=== PATIENT | female | born 2005 | race Caucasian/White ===

== ENCOUNTER 2025-01-27 10:01 | Outpatient (AMB) | payer OTHER, SELFPAY ==
--- NOTE | 2025-01-27 10:02 | MHC.PC.OV ---
Vital Signs 01/27/25 10:11 Height 5 ft 3.5 in Weight 246 lb 2 oz BMI 42.9 BP 124/74 Blood Pressure Location Lt brachial Position Sitting Respiration 12 Pulse 77 Pulse Source Pulse Oximeter Temp 97.6 F Temp Source Oral Pulse Oximetry (%) 98 Oxygen Delivery Method Room Air Intake Visit Reasons: CPE Intake Note: New patient to establish care and cpe Heading Pinner Required: No Allergies No Known Allergies (No Known Allergies*) Allergy (Unverified 01/27/25 10:03) Medication List - Last Reviewed 01/27/25 by Tomasz Clement MA ibuprofen 600 mg PO QID PNV,calcium 69-exdp-ggosn acid 27 mg iron- 1 mg (M- Plus) 1 tab PO DAILY Tobacco use date assessed: 01/27/25 Dental Screening Dental Screen Date: 01/27/25 Did you have a dental visit in the last 12 months?: Yes Did you have a dental problem in the last 6 months where you did not have access to dental care?: No Was dental information given to patient?: Patient has dentist HPI HPI Comments History of Present Illness Details 19 y/o F with MDD, LUCIE, obesity Social: 1 dtr 4 months, lives w/ mom boyfriend dtr and brother. Completed [place] school. Surgery: C section Fhx: Mom mental health, Dad healthy, Sister age 5 brain cancer; 1 brother alive and well. Dtr alive and well. Health Maintenance Tdap 2024 Flu declined 01/27/25 Pap [facility] [employer] [facility] No records, [facility] History of Present Illness The patient is a 19-year-old female presenting to establish care and for a complete physical exam. Major Depressive Disorder and Generalized Anxiety Disorder: - The patient has a history of major depressive disorder and generalized anxiety disorder, with positive PHQ and LUCIE screenings today. - She reports that her anxiety symptoms have worsened since her . - She denies any thoughts of harming herself or her baby. - She has never been on medication for her mood and has not been active with a counselor but is agreeable to starting both. - Her family history is positive for mental health issues in her mother. State: - The patient is 4 months from an emergency section. - The was indicated for heart rate decelerations during an induced labor. - She denies any history of hypertension or diabetes during her . - She is currently via pumping and taking vitamins and ibuprofen as needed. - Her menstrual cycles have returned and occur every 40 days. - She experienced some constipation after delivery. History of Herpes: - The patient was prescribed valacyclovir for a cold sore. - She denies any recurrence. Past Medical History - Major depressive disorder - Generalized anxiety disorder - History of herpes - GBS positive during - state Past Surgical History - Emergency section 4 months prior Family History - Mother has a history of mental health conditions. - Father has no significant medical history. - One brother is alive and well. - Sister at age 5 from brain cancer. Social History - The patient lives with her mother, boyfriend, 4-month-old daughter, and brother. - She reports feeling safe in her home environment. 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 - She is currently not working to care for her infant. - She desires to lose weight but reports increased hunger due to . Health Maintenance - A complete physical exam was performed. - Screening labs for thyroid function, diabetes, and cholesterol were ordered, and blood will be drawn today. - The patient declined an influenza vaccine. - Schedule a follow-up appointment in six weeks to review lab results and assess medication response. - The patient was instructed on how to sign up for and use the patient portal for communication and to view results. Review of Systems - Psychiatric: Reports increased anxiety and symptoms of depression since , with decreased frequency of finding luis in daily activities. - Neurological: Denies feeling weak or faint. - Constitutional: Expresses concern about weight and desire for weight loss. - GI: Denies current constipation. - : Reports menstrual cycles have returned with a 40-day interval and are not heavy. - Endocrine: Denies symptoms of hypertension or diabetes during . - Extremities: Denies swelling. - Musculoskeletal: Denies pain with movement. Physical Exam General: Well developed, well nourished, in no acute distress. Appears stated age. Head: Normocephalic, atraumatic. Eyes: Pupils are equal, round and reactive to light and accommodation. Conjunctivae are clear. Scleras nonicteric bilat. Vision grossly normal. Ears: TMs clear AU, EACS WNL Nose: Patent, without discharge. Neck: No carotid bruit bilat. Supple, no adenopathy or thyromegaly. Breast: Edu on SBE Lungs: Clear to auscultation bilaterally. No rales, rhonchi or wheeze noted. Good air flow in all hughes. Heart: Regular rate and rhythm. No murmurs, click, rubs or gallops are noted. Abdomen: Bowel sounds present in all quadrants. The abdomen is soft, nontender, with no masses or organomegaly noted. No hernias are noted. : Deferred. Reviewed recommendations for routine [employer] Pulses: Peripheral pulses are equal and palpable bilaterally. Extremities: No clubbing, cyanosis nor edema is noted. Neurologic: Gait and station normal. Cranial Nerves 2-12 intact. Motor strength grossly symmetrical and intact. No sensory loss. Balance normal. Skin: No rashes, ulcers, or lesions noted. Turgor is good. Skin color is good. Hair and nails are without abnormalities. Psych: Positive screenings for major depressive disorder and generalized anxiety disorder. Normal eye contact, affect and mood appropriate, and normal interactions. Patient is alert and appropriate to context. Results - PHQ and LUCIE screenings were positive. Labs pending Medical Decision Making The patient is a 19-year-old female, 4 months , presenting for a new patient visit, complete physical exam, and management of her mental health. Her primary concerns are worsening anxiety and symptoms of depression since her , which were confirmed by positive PHQ and LUCIE screenings. Given the patient's agreement, the plan is to initiate both pharmacotherapy and psychotherapy. Sertraline was selected due to its safety profile in . A low starting dose with a gradual titration is planned to improve tolerability, and she will be referred for counseling. Routine health maintenance screenings for thyroid disorders, diabetes, and hyperlipidemia were also indicated and ordered, as these can contribute to her symptoms and are pertinent in the period. Her concerns about weight loss were addressed with reassurance and a recommendation to delay caloric restriction to support recovery and . Follow-up is scheduled for six weeks to reassess her mood symptoms, review lab results, and evaluate her response to treatment. Plan 1. Major Depressive Disorder And Generalized Anxiety Disorder - A referral for counseling will be placed to address the patient's positive screenings for depression and anxiety. Brief intervention w/ CHW done. - Initiated sertraline 25 mg daily. - The patient was instructed to take half a tablet (12.5 mg) once a day for two weeks before increasing to the full 25 mg dose daily. - The patient was educated that sertraline is safe for and may cause initial side effects like a dull headache. - The prescription was sent to [facility] in [place]. 2. Weight Management - Addressed patient's desire to lose weight. - Advised giving her body about a year to recover from childbirth and for weight to normalize before implementing calorie restrictions, especially while . - Screening labs will help rule out any underlying metabolic causes contributing to difficulty with weight loss. Patient Instructions - Start taking sertraline for anxiety and depression. - For the first two weeks, take half of a 25 mg tablet once a day. - After two weeks, increase to one full 25 mg tablet once a day. - This medication is safe to take while you are . - You will be connected with our in-commercial loan officer to arrange for counseling. - Please have blood work done today at the lab here in the office. - Please stop at the first front ventilator to schedule a follow-up appointment for six weeks from now. - You will receive an email with a link to sign up for our patient portal. - Please use the patient portal danica to see your lab results and to send me direct messages. - It is best not to restrict your calories to lose weight for about a year while your body recovers and you are . Consent Patient was informed and verbally consented to the use of an ambient scribe for clinic note documentation during this visit. An additional 30 minutes was spent addressing the problem(s) noted at todays visit. This includes time spent before the visit reviewing the chart, time spent during the visit, and time spent after the visit on documentation reviewing laboratory results, diagnostic imaging, medications, performing a medically necessary evaluation, counseling on diagnoses, care coordination, ordering appropriate tests, ordering appropriate medications, review of tests performed by other providers, reporting test results with the patient, communication with other healthcare providers. [facility] Medical History (Updated 01/27/25 @ 10:37 by [facility]) Depression Eczema Surgical History (Updated 01/27/25 @ 10:10 by Tomasz Clement MA) Previous section Family History (Updated 01/27/25 @ 10:11 by Tomasz Clement MA) Sister Brain cancer Maternal Grandmother Stroke Mental health disorder Mother Mental health disorder Social History (Updated 01/27/25 @ 10:03 by Tomasz Clement MA) Household Members: Significant Other, Children and Other Household Members Other:: mother Both parents involved: No Caregiver staying overnight: No Housing: House 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 1. Little interest or pleasure in doing things: several days 2. Feeling down, depressed, or hopeless: several days 3. Trouble falling or staying asleep, or sleeping too much: several days 4. Feeling tired or having little energy: several days 5. Poor appetite or overeating: nearly every day 6. Feeling bad about yourself - or that you are a failure or have let yourself or your family down: several days 7. Trouble concentrating on things, such as reading the newspaper or watching television: more than half the days 8. Moving or speaking so slowly that other people could have noticed. Or the opposite - being so fidgety or restless that you have been moving around a lot more than usual: not at all 9. Thoughts that you would be better off or of hurting yourself in some way: not at all Total score: 10 Depression Screening Interpretation: Positive Depression Screening Follow-up: Community Mental Health Worker F/U Depression Screening Done: Yes 00641 - PHQ-9 Billing: Yes Source: Developed by Drs. Alexis Luna, Rita Gibson, Arnold Rahman and colleagues, with an educational freya from [employer]. Thrive Questionnaire Date Thrive assessed: 01/27/25 I am a: Patient What is your living situation today?: I have a steady place to live Within the past 12 months, did the food you bought not last and you didn't have the money to get more?: Never true Within the past 12 months, did you worry whether your food would run out before you got money to buy more?: Never true Do you have trouble paying for medicines?: No Do you have trouble getting transportation to medical appointments?: No Do you have trouble paying your heating and electricity bill?: No Do you have trouble taking care of your child, family member or friend?: No Do you have trouble with day-to-day activities such as bathing, preparing meals, shopping, managing finances, etc.?: No Are you currently unemployed and looking for a job?: No Are you interested in more education?: Yes Please select the resources that you would like help with: None Currently or been in a relationship where the following occur: No concerns reported THRIVE Score: 0 AUDIT C Alcohol Use Questionnaire (AUDIT-C) 1. How often do you have a drink containing alcohol?: Never 3. How often do you have six or more drinks on one occasion?: Never Total Score: 0 Score Reviewed/Action Taken: Yes LUCIE-7 AMB Questionnaire LUCIE-7 Date LUCIE - 7 assessed: 01/27/25 Feeling nervous, anxious, or on edge: 1 = Several days Not being able to stop or control worryin = More than half the days Worrying too much about different things: 2 = More than half the days Trouble relaxin = Not at all Being so restless that it is hard to sit still: 0 = Not at all Becoming easily annoyed or irritable: 1 = Several days Feeling afraid as if something awful might happen: 1 = Several days Total LUCIE-7 score (0-4 normal; 5-9 mild; 10-14 moderate; 15-21 severe): 7 Source: Developed by Drs. Alexis Luna, Rita Gibson, Arnold Rahman and colleagues, with an educational freya from [employer]. LUCIE-7 Assessment Billing LUCIE-7 Assessment Tool: LUCIE-7 Assessment 67831 Physical exam (Primary Care) Tobacco/Smoking Status: Tobacco use Status Tobacco use date assessed 01/27/25 01/27/25 10:06 Patient Tobacco Use Status Never used Tobacco 01/27/25 10:06 e-Cigarette/Vaping Use Never Used 01/27/25 10:06 PHQ-9: PHQ-9 Score PHQ-9: Total score 10 01/27/25 10:06 Depression Screening Interpretation: Positive Depression Screening Follow-up: Community Mental Health Worker F/U Thrive Assessment: Date of Thrive Assessment Date Thrive assessed 01/27/25 01/27/25 10:06 Currently or been in a relationship where the following occur: No concerns reported Coding Level of Care Code New Pt Level 3 (41178) New Pt Prev Care 18-39yr(76829 Diagnoses Encounter to establish care Z76.89 Mild episode of recurrent major depressive disorder F33.0 Major depression episode severity: mild LUCIE (generalized anxiety disorder) F41.1 Herpes B00.9 Obesity, morbid, BMI 40.0-49.9 E66.01 Adult general medical exam Z00.00 Influenza vaccination declined Z28.21 Laboratory exam ordered as part of routine general medical examination Z00.00 Additional Codes LUCIE-7 Assessment Billing - LUCIE-7 Assessment Tool: LUCIE-7 Assessment 92898 ([id number]) PHQ-9 - 68278 - PHQ-9 Billing: Yes ([id number]) Assessment & Plan Assessment & Plan (1) Encounter to establish care: Code(s): Z76.89 - Persons encountering health services in other specified circumstances (2) MDD (major depressive disorder), recurrent episode: Code(s): F33.9 - Major depressive disorder, recurrent, unspecified Category: Medical Qualifiers: Major depression episode severity: mild Qualified Code(s): F33.0 - Major depressive disorder, recurrent, mild (3) LUCIE (generalized anxiety disorder): Code(s): F41.1 - Generalized anxiety disorder Category: Medical (4) Herpes: Code(s): B00.9 - Herpesviral infection, unspecified Category: Medical (5) Obesity, morbid, BMI 40.0-49.9: Code(s): E66.01 - Morbid (severe) obesity due to excess calories Category: Medical (6) Adult general medical exam: Onset Date: ~01/27/25 Code(s): Z00.00 - Encounter for general adult medical examination without abnormal findings Category: Medical (7) Influenza vaccination declined: Onset Date: ~01/27/25 Code(s): Z28.21 - Immunization not carried out because of patient refusal Category: Medical (8) Laboratory exam ordered as part of routine general medical examination: Code(s): Z00.00 - Encounter for general adult medical examination without abnormal findings Category: Medical Plan . Orders: Orders Complete Blood Count no Diff Today Z00.00 - Encounter for general adult medical examination without abnormal findings Ferritin Today Z00.00 - Encounter for general adult medical examination without abnormal findings Microalbumin, Random (w Creat) Today Z00.00 - Encounter for general adult medical examination without abnormal findings TSH reflex Free T4 Today Z00.00 - Encounter for general adult medical examination without abnormal findings Vitamin B12 and Folate Today Z00.00 - Encounter for general adult medical examination without abnormal findings Hemoglobin A1c Today Z00.00 - Encounter for general adult medical examination without abnormal findings Comprehensive Met. Panel Today Z00.00 - Encounter for general adult medical examination without abnormal findings Lipid Panel Today Z00.00 - Encounter for general adult medical examination without abnormal findings Vitamin D 25-OH Total Today Z00.00 - Encounter for general adult medical examination without abnormal findings Referrals Nurse Navigator Referral F41.1 - Generalized anxiety disorder Medications: New sertraline 1/2 tab daily x 2 weeks then increase to 1 tab daily 25 mg PO DAILY 30 tabs 1RF Patient Instructions: Walk-In Care (Urgent Care): We Make it Easy Walk-in for urgent medical issues such as: ? Seasonal Allergies ? Insect Bites ? Cough ? Diarrhea ? Acute Asthma Attacks ? Back, Knee or Joint Pain ? Ear Infection ? Fever without a Rash ? Headaches ? Nausea ? Harrells Eye, Rash or Skin Irritation ? Sore Throat ? Sports Physicals ? Vomiting Most insurances are accepted. Patients do not need to be part of the [facility] to seek care at the walk-in clinic. Locations [address] [place], [place] Open Monday through Monday 8am-5pm *Hours may vary due to staffing availability. To confirm Walk-In Care hours please call. [facility] [address], [place] [address] ? [phone] [facility]In Care in [place] provides services to ages 18 and over. Open Monday-Monday: 7 a.m. to 5 p.m. and Monday: 9 a.m. to 3 p.m.* *Hours may vary due to staffing availability. To confirm Walk-In Care hours in [place], please call [phone]. [address] [facility], [place] [address] ? [phone] [facility]-In [facility] in [place] provides services to ages 12 and over. Open Monday-Monday: 8 a.m. to 5 p.m. Hours may vary due to staffing availability. To confirm Walk-In Care hours in [place], please call [phone]. LABORATORY SERVICES: [facility] Lab ? Primary Location [address] [place] [address] Monday through Monday 6:00 AM ? 5:00 PM Monday 7:00 AM ? 11:00 AM* [phone] The [facility] Lab is centrally located near the front entrance of the [facility] for easy outpatient access. Convenient parking is provided for outpatients. *Hours may vary due to staffing availability. To confirm Laboratory hours for any location, please call [phone]. Offsite Location For your convenience, we offer offsite laboratory draw stations at the following locations: [address] [place] [address] ? [facility] [address], [address] Monday through Monday 7:30 AM ? 1:00 PM* [phone] *Hours may vary due to staffing availability. To confirm Laboratory hours for any location, please call [phone]. [place] ? [address] Monday through Monday 6:00 AM ? 3:30 PM* Monday 6:30 AM ? 3 PM* [phone] *Hours may vary due to staffing availability. To confirm Laboratory hours for any location, please call [phone] [place] [address] Monday through Monday 7:30 AM ? 4:00 PM* [phone] *Hours may vary due to staffing availability. To confirm Laboratory hours for any location, please call [phone] [place] [address] Monday through 9:00 AM ? 4:00 PM* *Hours may vary due to staffing availability. To confirm Laboratory hours for any location, please call [phone]. Appointments are not necessary. Walk-ins are welcome. Like all the departments throughout the [facility], our Lab undergoes frequent reviews to ensure the quality and accuracy of test results, and our staff takes special pride in its status as a nationally accredited facility. Patient Portal: [facility] ONE PATIENT. ONE RECORD. BETTER CARE. [facility] has a fully integrated, cutting-edge mobile electronic health information system that has revolutionized the way we care for our patients and manage our organization. This system improves communication and coordination enabling us to provide safe, higher-quality care, and an overall positive experience for staff and patients. Our first priority, as always, is to deliver the highest quality care possible. The system is running in the background supporting that priority. This portal is for all [facility] services and practices. If you are experiencing any technical difficulties with enrolling or logging into the Patient Portal please complete the [facility] Patient Portal Technical Support Form. [facility] now offers a new secure on-line interactive tool for patients to review their health information ? ?Patient Portal. This interactive web portal will enable patients and their families to take an active role in their care by providing easy, secure access to their health information via the internet. The Patient Portal provides patients with instant access to their health information, including laboratory results, medications, allergies, demographic information, visit history, and more. In addition to managing their own care, parents and health care proxies with authorized consent will appreciate the ability to access the records of those individuals for whom they provide care. Please note: if you wish to gain access (Proxy) to another patient?s portal, you will be required to come to the Medical Records Department in person at [facility]. Both the patient giving proxy access and the proxy will need to provide photo identification and complete the appropriate authorization. The Patient Portal also allows track their appointments online. The [facility] Patient Portal also saves patients time by allowing them to submit updates to their demographic and contact information prior to their visits. Portal email notifications will also alert patients to any new activity on their portal, such as test results and new appointments. In order to initially enroll in the [facility] Patient Portal, you will need to enter some required information including the following: your [facility] Medical Record number your personal home email address name date of Please note: In order to enroll in the [facility] Patient Portal, we need to have your email address on file in your electronic medical record. ?The email address needs to be specific for one person (yourself) in order for your Portal enrollment to be successful. ?You can update your email address in person with our Registration staff when you are registering for a hospital visit. ?Otherwise, you will need to come to the Health Information Management (Medical Records) Department at [facility]. ?We are open from Monday ? Monday from 7:30 a.m. ? 4:30 p.m. ?You will be required to present a photo id. Once you have successfully enrolled in the Patient Portal, you will receive a one-time user id and password for the Portal, sent to your email address. ?This will allow you to log into the Patient Portal within 99 hrs and reset your own logon id and password, and define personal security questions. ?Once your permanent login and password have been set, you can log into the [facility] Patient Portal at any time via the blue button above or from the Portal Logon button on any page of the [facility] website. [facility] and [facility] encourage all of our patients to enroll in Patient Portal as it presents a valuable opportunity for patients and their families to actively participate in their care and stay healthy Welcome to [facility]. ?We look forward to working with you. Health screenings for women You should visit your health care provider from time to time, even if you are healthy. The purpose of these visits is to: Screen for medical issues Assess your risk for future medical problems Encourage a healthy lifestyle Update vaccinations and other preventive care services Help you get to know your provider in case of an illness Information Even if you feel fine, you should still see your provider for regular checkups. These visits can help you avoid problems in the future. For example, the only way to find out if you have high blood pressure is to have it checked regularly. High blood sugar and high cholesterol levels also may not have any symptoms in the early stages. A simple blood test can check for these conditions. There are specific times when you should see your provider or receive specific health screenings. The [place] Preventive Services Task Force publishes a list of recommended screenings. Below are screening guidelines for women ages 18 to 39. BLOOD PRESSURE SCREENING Your blood pressure should be checked at least once every 3 to 5 years if: Your blood pressure is in the normal range (top number less than 120 mm Hg and bottom number less than 80 mm Hg) You don't have risk factors for high blood pressure Ask your provider if you need your blood pressure checked more often if: The top number is 120 to 129 mm Hg or the bottom number is 70 to 79 mm Hg You have diabetes, heart disease, kidney problems, are overweight, or have certain other health conditions You have a first-degree relative with high blood pressure You are Black You had high blood pressure during a If the top number is 130 mm Hg or greater or the bottom number is 80 mm Hg or greater, this is considered stage 1 hypertension. Schedule an appointment with your provider to learn how you can reduce your blood pressure. Watch for blood pressure screenings in your area. Ask your provider if you can stop in to have your blood pressure checked. BREAST CANCER SCREENING Experts do not agree about the benefits of breast self-exams in finding breast cancer or saving lives. Talk to your provider about what is best for you. A screening mammogram is not recommended for most women under age 40. Your provider may discuss and recommend mammograms, MRI scans, or ultrasounds if you have an increased risk for breast cancer, such as: A mother or sister who had breast cancer at a young age (most often starting screening earlier than the age the close relative was diagnosed) You carry a high-risk genetic marker CERVICAL CANCER SCREENING Cervical cancer screening should start at age 21 years unless your provider advises otherwise. After the first test: Women ages 21 through 29 should have a Pap test every 3 years. Exoprts do not agree on whether HPV testing is recommended for this age group. Women ages 30 through 65 should be screened with either a Pap test every 3 years or the HPV test every 5 years or both tests every 5 years (called cotesting ). Women who have been treated for precancer (cervical dysplasia) should continue to have Pap tests for 20 years after treatment or until age 65, whichever is longer. If you have had your uterus and cervix removed (total hysterectomy), and you have not been diagnosed with cervical cancer or precancer (high grade cervical neoplasia), you do not need cervical cancer screening. CHOLESTEROL SCREENING Cholesterol screening should begin at: Age 45 for women with no known risk factors for coronary heart disease Age 20 for women with known risk factors for coronary heart disease Repeat cholesterol screening should take place: Every 5 years for women with normal cholesterol levels More often if changes occur in lifestyle (including weight gain and diet) More often if you have diabetes, heart disease, kidney problems, or certain other conditions DIABETES SCREENING You should be screened for diabetes starting at age 35 and then repeated every 3 years if you have no risk factors for diabetes. Screening may need to start earlier and be repeated more often if you have other risk factors for diabetes, such as: You have a first degree relative with diabetes. You are overweight or have obesity. You have high blood pressure, prediabetes, or a history of heart disease. Screening for diabetes should be done if you are planning to become and you are overweight and have other risk factors such as high blood pressure. DENTAL EXAM Go to the dentist once or twice every year for an exam and cleaning. Your dentist will evaluate if you need more frequent visits. EYE EXAM Have an eye exam every 5 to 10 years before age 40. If you have vision problems, have an eye exam every 2 years or more often if recommended by your provider. You should have an eye exam that includes an examination of your retina (back of your eye) at least every year if you have diabetes. IMMUNIZATIONS Commonly needed vaccines include: Flu shot: get one every year. COVID-19 vaccine: ask your provider what is best for you. Tetanus-diphtheria and acellular pertussis (Tdap) vaccine: have one at or after age 19 as one of your tetanus-diphtheria vaccines if you did not receive it as an adolescent. Tetanus-diphtheria: have a booster (or Tdap) every 10 years. Varicella vaccine: receive 2 doses if you never had chickenpox or the varicella vaccine. Hepatitis B vaccine: receive 2, 3, or 4 doses, depending on your exact circumstances. Measles, mumps, and rubella (MMR) vaccine: receive 1 to 2 doses if you are not already immune to MMR. Your provider can tell you if you are immune. Ask your provider about the human papillomavirus (HPV) vaccine if: You have not received the HPV vaccine in the past You have not completed the full vaccine series (you should catch up on this shot) Ask your provider if you should receive other immunizations if you have certain health problems that increase your risk for some diseases such as pneumonia. INFECTIOUS DISEASE SCREENING Women who are sexually active should be screened for chlamydia and gonorrhea up until age 25. Women 25 years and older should be screened for chlamydia and gonorrhea if at high risk. Screening for hepatitis C: All adults ages 18 to 79 should get a one-time test for hepatitis C. people should be screened at every . Screening for human immunodeficiency virus (HIV): All people ages 15 to 65 should get a one-time test for HIV. Depending on your lifestyle and medical history, you may also need to be screened for infections such as syphilis and HIV, as well as other infections. PHYSICAL EXAM All adults should visit their provider from time to time, even if they are healthy. The purpose of these visits is to: Screen for disease Assess your risk of future medical problems Encourage a healthy lifestyle Update your vaccinations and other preventive care services Maintain a relationship with a provider in case of an illness Your height, weight, and BMI should be checked at every exam. During your exam, your provider may ask you about: Depression and anxiety Diet and exercise Alcohol and tobacco use Safety issues, such as using seat belts, smoke detectors, and intimate partner violence Your medicines and risk for interactions SKIN SELF-EXAM Your provider may check your skin for signs of skin cancer, especially if you're at high risk, such as if you: Have had skin cancer before Have close relatives with skin cancer Have a weakened immune system OTHER SCREENING Talk with your provider about colon cancer screening if you have a strong family history of colon cancer or polyps, or if you have had inflammatory bowel disease or polyps yourself. Routine bone density screening of women under 40 is not recommended. [place] Suicide and Crisis Lifeline: Available 24 hours a day, 7 days a week, 365 days a year Dial 988 with any telephone to speak to someone immediately [address] [phone] , Walk ins [facility] (Mental / Behavioral health therapist: [address] [place] [address] [facility] at [facility]: [address] [place] [address] Open from 10am - 12pm (walk ins [place]) [facility] Crisis Services: [address] [place] [address] Walk in hours from 10am - 12pm Behavioral health Network: [address] [place] [address] [place] [id number] Monday through Monday 8am - 8pm Monday and Monday 9am - 5pm Crisis Hotlines Suicide prevention, domestic violence, and other crisis hotlines for youth, young adults, and their friends and families. [facility] Safeline helps youth who have run away, are thinking about running away, or who already ran away but are ready to come home. Parents and guardians can also contact the hotline if they are worried about their child running away or if their child has already left home. The hotline is available 24 hours a day, seven days a week. Youth, parents, and guardians can also use the online chat feature on the [facility]'s website to ask for help and get support, [place] [address]. [facility] National Suicide Prevention Lifeline: The [place] Suicide Prevention Lifeline is a network of local crisis centers that are available 24/ to provide support for youth and adults who are in any kind of emotional crisis. In addition to the main hotline number listed above, there are several other numbers to call depending on your needs: Estonian Language: Deaf and Hard of Hearin1-197.108.2538 Veterans: Disaster Distress: Anyone can also use their online chat feature on their website. [place] Suicide Prevention Lifeline [facility] Helpline: The [facility] Helpline is available to anyone in [place] who is need of emotional support. Anyone can call or text the helpline to receive help from specially trained volunteers. [place] high school and college students can also get online support through the [employer]_ program. For high school students, volunteers ages 15-18 are available Monday- from 6-9PM. For college students, [employer]_ is available Monday-Monday from 5-9PM. The As[employer] Project - The [employer]af Project is a 24/7 crisis intervention and suicide prevention hotline for LGBTQ youth. Youth can also text Asaf to for support, or use the online chat feature on the [employer]'s website. [employer] is available Monday-Monday between 3-10PM. [employer] is available seven days a week between 3-10PM. SafeLink: SafeLink is for anyone who is being affected by domestic violence or dating violence. Volunteers at [employer] speak Slovak and Estonian, and [employer] also has a service that can provide translation in more than 130 languages. TTY:
[2025-01-27 10:11] VITALS: BP 124/74; PULSE 77; RESP 12; TEMP 36.4; O2SAT 98; BMI 42.9
== END 2025-01-27 10:37 | disposition home or self-care (01) ==
LOC: HO.HMCFM 10:01
PROVIDERS: PCP Pediatrics; Visit Provider Nurse Practitioner Family
DX: Z00.00 Encounter for general adult medical examination without abnormal findings (principal); F33.0 Major depressive disorder, recurrent, mild; E66.01 Morbid (severe) obesity due to excess calories; Z68.41 Body mass index [BMI] 40.0-44.9, adult; F41.1 Generalized anxiety disorder; B00.9 Herpesviral infection, unspecified; Z28.21 Immunization not carried out because of patient refusal; Z76.89 Persons encountering health services in other specified circumstances

== ENCOUNTER 2025-01-27 10:01 | Outpatient (REF) | payer OTHER, SELFPAY ==
[2025-01-27 14:18] LABS: Hematocrit 39.2 % (37.0-47.0); Hemoglobin 12.8 g/dl (12.0-16.0); Mean Corpuscular HGB Conc 32.7 g/dl (31.0-35.0); Mean Corpuscular Hemoglobin 28.1 pg (27.0-33.0); Mean Corpuscular Volume 86.0 fL (80.0-98.0); NRBC Abs Auto 0.000 X10*3/uL (0.0-0.012); NRBC Pct Auto 0.0 /100WBC (0.0-0.2); Platelet Count 286 X10*3/uL (160-400); Red Blood Count 4.56 X10*6/uL (4.20-5.50); White Blood Count 9.0 X10*3/uL (4.8-10.8)
[2025-01-27 14:53] LABS: Alanine Aminotransferase 21 U/L (0-31); Albumin Level 4.5 g/dL (3.5-5.0); Alkaline Phosphatase 103 U/L (39-117); Anion Gap 12 (12-20); Aspartate Amino Transferase 28 U/L (5-31); Blood Urea Nitrogen 15 mg/dL (9-16); Calcium 9.2 mg/dL (8.4-10.2); Carbon Dioxide 22 mmol/L (22-29); Chloride 109 mmol/L (96-108); Cholesterol 186 mg/dL (<200); Estimated Glomerular Filt Rate > 60; HDL Cholesterol 58 mg/dL (>40); Potassium 4.0 mmol/L (3.3-5.1); Sodium 139 mmol/L (135-145); Total Protein 7.6 g/dL (6.5-8.0); Triglycerides 75 mg/dL (<150)
[2025-01-27 14:55] LABS: Ferritin 24 ng/mL (10-122)
[2025-01-27 15:06] LABS: Folate > 20.0 ng/mL (> or = 4.0); Vitamin B12 651 pg/mL (200-900)
== END 2025-01-27 10:02 | disposition home or self-care (01) ==
LOC: HO.WFDLDS 10:01
PROVIDERS: PCP Pediatrics; Visit Provider Nurse Practitioner Family
DX: Z00.00 Encounter for general adult medical examination without abnormal findings (principal); Z76.89 Persons encountering health services in other specified circumstances; F33.0 Major depressive disorder, recurrent, mild; F41.1 Generalized anxiety disorder; B00.9 Herpesviral infection, unspecified; E66.01 Morbid (severe) obesity due to excess calories; Z68.41 Body mass index [BMI] 40.0-44.9, adult; Z28.21 Immunization not carried out because of patient refusal; Z13.31 Encounter for screening for depression; Z13.39 Encounter for screening examination for other mental health and behavioral disorders
CPT/HCPCS: 36415; 80053; 80061; 82306; 82570; 82607; 82728; 82746; 83036; 84443; 85027; 96127; 99202; 99385